=== PATIENT | female | born 1970 | race African-American/Black ===

== ENCOUNTER 2016-12-21 12:50 | Emergency (ER) | payer OTHER ==
[~2016-12-21] VITALS: Ht 162.6 cm; Wt 88.9 kg
[~2016-12-21 12:50] MED LIST: ANTI-ITCH28.4 GM TP; BACTRIM DS TAB1 EACH PO; BENADRYL25 MG PO; CLARITIN10 M2 PO; CLEOCIN HCL150 MG PO; FLAGYL500 MG PO; HYDROXYZINE HCL25 M2 PO; IBUPROFEN 600600 M1 PO; IRON; KEFLEX500 M1 PO; MEDROL DOSPAK21 TAB PO; NORCO 5-325 TA1 EACH PO; PREDNISONE 5 MG5 MG PO; PREDNISONE50 MG PO; ZPAK PO
[2016-12-21 13:49] LABS: URINE BILIRUBIN NEGATIVE (Negative); URINE BLOOD NEGATIVE (Negative); URINE COLOR YELLOW; URINE GLUCOSE-RANDOM* NEGATIVE (Negative); URINE KETONES NEGATIVE (Negative); URINE LEUKOCYTES-REFLEX 1+ (Negative); URINE PROTEIN (DIPSTICK) NEGATIVE (Negative); URINE SPECIFIC GRAVITY >= 1.030 (1.003-1.035); URINE UROBILINOGEN 0.2 E.U./dl (0.2-1.0)
[2016-12-21 13:58] LABS: SQUAMOUS 4-10 Moderate /LPF (0-3); URINE WBC-REFLEX 0-5 Rare /HPF (0-5)
[2016-12-21 13:59] LABS: CASTS None Seen /LPF (None Seen); CRYSTALS None Seen /LPF (None Seen); URINE RBC None Seen /HPF (0-2)
[2016-12-21] MEDS ORDERED: DOXYCYCLINE 10100 MG PO (15:07)
[2016-12-21] MEDS ORDERED: FLAGYL500 MG PO (15:07)
[2016-12-21 15:34] VITALS: BP 115/61
[2016-12-24 17:10] LABS: CHLAMYDIA TRACHOMATIS-PCR Negative (Negative); NEISSERIA GONORRHEA-PCR Negative (Negative)
== END 2016-12-21 15:36 | disposition home or self-care (01) ==
LOC: ER 12:50
PROVIDERS: Emergency Medicine
DX: N76.0 Acute vaginitis (principal); F10.99 Alcohol use, unspecified with unspecified alcohol-induced disorder; F17.210 Nicotine dependence, cigarettes, uncomplicated; F15.10 Other stimulant abuse, uncomplicated; Z90.710 Acquired absence of both cervix and uterus; Z98.890 Other specified postprocedural states

== ENCOUNTER 2017-04-18 02:33 | Inpatient (IN) | payer OTHER ==
[~2017-04-18] VITALS: Ht 162.6 cm; Wt 90.7 kg
--- NOTE | ~2017-04-18 | HC ---
[facility] [place] [address] CONSULTATION Name: ANGELINA GUILLEN Room #: 211-P [facility] IN M.R.#: [id number] Admission: 04/18/17 Attend Phys: Miguel Quesada MD Discharge: 04/19/17 Date of : 68 Report #: [id number] THIS REPORT FOR: //name// CC: JAY physician/PCP Miguel Quesada DATE OF SERVICE: 04/18/2017 HISTORY OF PRESENT ILLNESS: This is a 46-year-old female patient who was evaluated for an episode of TIA. The patient's records were reviewed and the patient was interviewed. She had an episode of right-sided symptoms associated with speech difficulty. Symptoms were severe when it came. They came spontaneously and resolved spontaneously. She never had this episode before and she has no prior history of migraine. REVIEW OF SYSTEMS: Indicates that she has no history of migraine. She does not believe she has diabetes or hypertension, but she does not go to the doctor on a regular basis. She did smoked marijuana on the night these symptoms occurred, prior to the symptoms happening. This marijuana was bought on the street, but she does not believe it was contaminated or spiked. She had a history of hysterectomy in the past and that was because of the fibroid. I carried out 14-point review of system, this is basically all the 14-point review of system she had. Rest of it was negative. PAST MEDICAL HISTORY: Negative for migraine or TIA. FAMILY HISTORY: Negative for any early age strokes. SOCIAL HISTORY: She told me that she does not smoke cigarettes, but smoke marijuana occasionally. She drinks socially. PHYSICAL EXAMINATION: Indicate she is alert, responsive. Her speech, concentration, fund of knowledge and memory is at her baseline. Cranial nerve examination 2-12 is unremarkable. She has symmetrical strength, sensation, reflexes and tones in all 4 extremities. There is no cerebellar sign. There is no papilledema. There is no meningeal sign. There is no thyroid mass or carotid bruit. Cardiac examination does not show any abnormality of the heart sounds or any other definite abnormality. Respiratory examinations indicate that there was no rhonchi and there was no respiratory difficulty. She has no edema, cyanosis or jaundice. Her pulses are palpable. Blood pressure is 114/72, respiration is 17, pulse is 65, temperature is 98.4. Her head CT was unremarkable and so was her carotid Doppler. Her LDL is high at 119. IMPRESSION: The patient presented with an episode of transient ischemic attack. At this age, the most common etiology for the transient ischemic attack will be hemiplegic migraine. There is a diagnosis of exclusion and other etiologies [address] [address] CONSULTATION Name: WILMERANGELINA JOSELIN Room #: [facility] IN M.R.#: [id number] Admission: 04/18/17 Attend Phys: Miguel Quesada MD Discharge: 04/19/17 Date of : 68 Report #: [id number] need to be excluded. I discussed with her and I suggested that we probably should do a CT angiogram to make sure there are no aneurysms or any other etiology. Those etiologies are less likely, but cannot be fully excluded. I discussed with her indication, potential complication, and alternative of CT angiogram and she wants to proceed with that. Her GFR is 130 and we will go ahead and do that. I will also get an EEG done and get some other blood workup done and await for echocardiogram. She should be on aspirin and her LDL should be managed further and if she wants to go on statin, she can be put on statin. All of it was discussed with the patient and she wants to follow this plan. Thank you very much for this referral and if you have any questions, please feel free to contact me. <ELECTRONICALLY SIGNED> By: Leo Snyder MD 04/22/17 1107 [id number] 2209 Leo Snyder MD /nt
--- NOTE | ~2017-04-18 | 2DMMODE ---
[facility] [address] [place] [address] 2 D/M-MODE ECHOCARDIOGRAM Name: WILMERANGELINA OLIVERA Room #: 211-P ADM IN M.R.#: [id number] Admission: 04/18/17 Attend Phys: Miguel Quesada, Discharge: Date of : 68 Date of Service: 04/18/17 1405 Report #: [id number] THIS REPORT FOR: //name// APPROVED REPORT Study performed: 04/18/2017 11:44:16 EXAM: Comprehensive 2D, Doppler, and color-flow Echocardiogram Patient Location: Echo lab Room #: 211 Status: routine BSA: 1.96 BP: 114/72 mmHg Other Information Study Quality: Good Indications Stroke vs TIA Echo Enhancing Agent Indication: Rule out Shunt Agent(s) / Amount(s) Used: Agitated Saline 6 cc 2D Dimensions RVDd: 33.92 mm LVEF(%): 66.48 (>50%) IVSd: 8.77 (7-11mm) LVOT Diam: 17.56 (18-24mm) LVDd: 35.09 mm PWd: 8.67 (7-11mm) Ascending Ao: 25.48 (22-36mm) LVDs: 22.51 (25-40mm) Aortic Root: 23.36 mm IVC: 11.00 mm Rubi's LVEF: 66.48 % Volumes Left Atrial Volume (Systole) Single Plane 4CH: 42.67 mL Single Plane 2CH: 30.97 mL LA ESV Index: 20.00 mL/m2 Aortic Valve AoV Peak Mark Anthony.: 1.73 m/s AO Peak Gr.: 11.92 mmHg LVOT Max P.98 mmHg LVOT Max V: 1.32 m/s CHELSEA Vmax: 1.85 cm2 [facility] [employer] [place] [address] 2 D/M-MODE ECHOCARDIOGRAM Name: ANGELINA GUILLEN Room #: 211-P [facility] IN M.R.#: [id number] Admission: 04/18/17 Attend Phys: Miguel Quesada, Discharge: Date of : 68 Date of Service: 04/18/17 1405 Report #: [id number] Mitral Valve E/A Ratio: 2.3 MV Decel. Time: 158.49 ms MV E Max Mark Anthony.: 1.02 m/s MV A Mark Anthony.: 0.45 m/s MV PHT: 45.96 ms IVRT: 76.12 ms Pulmonary Valve PV Peak Mark Anthony.: 1.02 m/s PV Peak Gr.: 4.19 mmHg Pulmonary Vein P Vein S: 0.60 m/s P Vein A: 0.24 m/s P Vein D: 0.54 m/s P Vein A Dur.: 83.0 msec P Vein S/D Ratio: 1.11 Tricuspid Valve TR Peak Mark Anthony.: 2.85 m/s RAP Estimate: 5.00 mmHg TR Peak Gr.: 32.45 mmHg PA Pressure: 38.00 mmHg Left Ventricle The left ventricle is normal size. There is normal left ventricular wall thickness. The left ventricular systolic function is normal. The left ventricular ejection fraction is within the normal range. LVEF is 60-65%. The left ventricular diastolic function is normal. Right Ventricle The right ventricle is normal size. The right ventricular systolic function is normal. Atria The left atrium size is normal. Color doppler noted possible PFO/ASD, however injection of bubbles documented no interatrial shunt. The right atrium size is normal. Aortic Valve The aortic valve is normal in structure. No aortic regurgitation is present. There is no aortic valvular stenosis. Mitral Valve The mitral valve is normal in structure. Trace mitral regurgitation. No evidence of mitral valve stenosis. Tricuspid Valve The tricuspid valve is normal in structure. Trace tricuspid [facility] [address] [place] [address] 2 D/M-MODE ECHOCARDIOGRAM Name: ANGELINA GUILLEN Room #: [address] [place] [address] IN M.R.#: [id number] Admission: 04/18/17 Attend Phys: Miguel Quesada, Discharge: Date of : 68 Date of Service: 04/18/17 1405 Report #: [id number] regurgitation. PAP is estimated at 38 mmHg. Pulmonic Valve The pulmonary valve is normal in structure. Trace pulmonic regurgitation. Great Vessels The aortic root is normal in size. IVC is normal in size and collapses >50% with inspiration. Pericardium There is no pericardial effusion. <Conclusion> The left ventricle is normal size. LVEF is 60-65%. The left atrium size is normal. The aortic valve is normal in structure. The mitral valve is normal in structure. Trace mitral regurgitation. The tricuspid valve is normal in structure. Trace tricuspid regurgitation. PAP is estimated at 38 mmHg. The pulmonary valve is normal in structure. Trace pulmonic regurgitation. There is no pericardial effusion. Color doppler noted possible PFO/ASD, however injection of bubbles documented no interatrial shunt. <ELECTRONICALLY SIGNED> By: Paco Mon MD 04/18/17 1405 1405 1405 Paco Mon MD /INF
--- NOTE | ~2017-04-18 | EKG ---
[address] [address] ELECTROCARDIOGRAM REPORT Name: ANGELINA GUILLEN Room #: [facility] IN M.R.#: [id number] Admission: 04/18/17 Attend Phys: Miguel Quesada MD Discharge: 04/19/17 Date of : 68 Report #: [id number] THIS REPORT FOR: //name// [facility] ED Test Date: 2017-04-18 Test Time: 02:50:19 Pat Name: ANGELINA GUILLEN Department: Room: [facility] Gender: F Banquet Chef: gg : 1970 Requested By: Estella Candelaria Order Number: [id number] MD: Jeffrey Marshall Measurements Intervals [place] Rate: 67 P: 28 NM: 135 QRS: 15 QRSD: 73 T: 12 QT: 364 QTc: 385 Interpretive Statements Sinus rhythm No previous ECG available for comparison Electronically Signed On 04-20-2017 12:09:52 BUN MACHINE OPERATOR by Jeffrey Marshall [email or web address] <ELECTRONICALLY SIGNED> By: Jeffrey Marshall MD 04/20/17 1209 0250 0250 Jeffrey Marshall MD /SOFI
--- NOTE | ~2017-04-18 | EEG ---
[facility] [address] [place] [employer] [place] [address] ELECTROENCEPHALOGRAM Name: ANGELINA GUILLEN Room #: 211-P [facility] IN M.R.#: [id number] Admission: 04/18/17 Attend Phys: Miguel Quesada MD Discharge: 04/19/17 Date of : 68 Report #: [id number] THIS REPORT FOR: //name// CC: [facility] physician/PCP Miguel Quesada DATE OF SERVICE: 04/18/2017 This patient is being evaluated for right-sided weakness. EEG was done by placing the electrodes by standard 10/20 system of electrode placement. Both referential and sequential montages were used for recording. Background activity in this patient's EEG is 11 Hz and 40-50 microvolt. This is a very well-formed background activity. This background activity is symmetrical. The patient goes to sleep that is associated with bilaterally symmetrical sleep spindle and vertex sharp waves. Some eye movement was noticed during that recording. Photic stimulation was unremarkable. Throughout the record, no active epileptiform activity was noticed. IMPRESSION: This patient's EEG does not demonstrate any clear-cut epileptiform activity. However, the patient's EEG does appear to be showing some abnormal eye movements when she goes to sleep. I will recommend overnight sleep study with seizure montages followed by daytime sleep study to make sure she does not have a REM onset sleep. Thank you very much for this referral. <ELECTRONICALLY SIGNED> By: Leo Snyder MD 04/22/17 1108 0804 0848 MD toya Palma
[~2017-04-18 02:33] MED LIST changes: +DOXYCYCLINE 10100 MG PO
[2017-04-18 02:54] VITALS: BP 134/72
[2017-04-18 03:12] LABS: ABSOLUTE NEUTROPHILS 6.1 thou/uL (1.4-8.2); BASOPHILS 0.4 % (0.0-2.0); EOSINOPHILS 0.7 % (0.0-3.0); HEMATOCRIT 42.6 % (37.0-47.0); HEMOGLOBIN 14.3 gm/dL (12.0-15.0); LYMPHOCYTES 21.3 % (24.0-44.0); MANUAL DIFF NO; MCH 29.9 pg (26.0-34.0); MCHC 33.6 g/dL (28.0-37.0); MCV 88.8 fL (80.0-100.0); MONOCYTES 6.2 % (1.0-8.0); PLATELET COUNT 193 thou/uL (150-400); POLYS 71.4 % (36.0-66.0); RDW 14.1 % (10.5-14.5); WBC 8.5 thou/uL (4.0-11.0)
[2017-04-18 03:21] LABS: CALCIUM 9.5 mg/dL (8.5-10.1); CREATININE 0.6 mg/dL (0.6-1.0); POTASSIUM 3.8 mmol/L (3.5-5.1)
[2017-04-18 03:25] LABS: APTT 31.2 Seconds (24.5-32.8); PROTIME 10.6 Seconds (9.3-11.4)
[2017-04-18 05:07] VITALS: BP 111/66
[2017-04-18 05:17] LABS: CHOLESTEROL 192 mg/dL (<200); HDL CHOLESTEROL 44 mg/dL (>40); LDL CHOLESTEROL 119 mg/dL (<100); TC:HDL 4.4 Ratio (Not establshd); TRIGLYCERIDE 145 mg/dL (<150); VLDL 29 mg/dL (<40)
[2017-04-18 05:22] LABS: SERUM ASSESSMENT Clear
[2017-04-18 05:37] VITALS: BP 123/60
[2017-04-18] MEDS ORDERED: NOHOMEMEDICATIONS PO (06:22)
[2017-04-18 08:14] VITALS: BP 114/72
[2017-04-18 13:45] LABS: TSH 2.277 uIU/mL (0.358-3.740)
[2017-04-18 15:03] VITALS: BP 117/63
[2017-04-18 19:45] VITALS: BP 115/77
[2017-04-19 01:08] LABS: GLYCOHEMOGLOBIN (HGB A1C) 5.3 % (4.8-5.6)
[2017-04-19 04:15] VITALS: BP 107/67
[2017-04-19 08:40] VITALS: BP 116/57
[2017-04-19] MEDS ORDERED: LIPITOR10 MG PO (11:39)
[2017-04-19] MEDS ORDERED: ASPIR 8181 MG PO (11:39)
[2017-04-19 13:54] VITALS: BP 116/57
== END 2017-04-19 15:22 | disposition home or self-care (01) | DRG 69 ==
LOC: ER 02:33 → 2N 04:23 → EROBS 04:23 → 2N 05:17
PROVIDERS: Emergency Medicine; Nurse Practitioner Acute Care; Psychiatry & Neurology Neuromuscular Medicine
DX: G45.9 Transient cerebral ischemic attack, unspecified (principal); G43.409 Hemiplegic migraine, not intractable, without status migrainosus; F12.90 Cannabis use, unspecified, uncomplicated; Z71.89 Other specified counseling; Z82.49 Family history of ischemic heart disease and other diseases of the circulatory system; Z83.3 Family history of diabetes mellitus; Z90.710 Acquired absence of both cervix and uterus; Z87.891 Personal history of nicotine dependence
CPT/HCPCS: 10081

== ENCOUNTER 2017-09-29 09:14 | Emergency (ER) | payer OTHER ==
[~2017-09-29] VITALS: Ht 162.6 cm; Wt 90.7 kg
[~2017-09-29 09:14] MED LIST changes: +ASPIR 8181 MG PO; +LIPITOR10 MG PO; +NOHOMEMEDICATIONS PO
[2017-09-29] MEDS ORDERED: NAPROSYN500 MG PO (09:29)
[2017-09-29] MEDS ORDERED: NORFLEX100 MG PO (09:29)
== END 2017-09-29 09:45 | disposition home or self-care (01) ==
LOC: ER 09:14
DX: S76.811A Strain of other specified muscles, fascia and tendons at thigh level, right thigh, initial encounter (principal); F17.210 Nicotine dependence, cigarettes, uncomplicated; X50.1XXA Overexertion from prolonged static or awkward postures, initial encounter; Y93.41 Activity, dancing; Y92.89 Other specified places as the place of occurrence of the external cause; Y99.8 Other external cause status

== ENCOUNTER 2019-07-26 16:51 | Emergency (ER) | payer OTHER ==
[~2019-07-26] VITALS: Ht 162.6 cm; Wt 90.7 kg
[~2019-07-26 16:51] MED LIST changes: +NAPROSYN500 MG PO; +NORFLEX100 MG PO
[2019-07-26 16:54] VITALS: BP 118/74
[2019-07-26] MEDS ORDERED: KEFLEX500 M1 PO (17:28)
== END 2019-07-26 17:39 | disposition home or self-care (01) ==
LOC: ER 16:51
DX: T78.49XA Other allergy, initial encounter (principal); L20.9 Atopic dermatitis, unspecified; F17.210 Nicotine dependence, cigarettes, uncomplicated; X58.XXXA Exposure to other specified factors, initial encounter

== ENCOUNTER 2020-03-03 21:08 | Emergency (ER) | payer OTHER ==
[~2020-03-03] VITALS: Ht 162.6 cm; Wt 90.7 kg
[2020-03-03 21:26] LABS: URINE BILIRUBIN NEGATIVE (Negative); URINE BLOOD NEGATIVE (Negative); URINE CLARITY CLEAR; URINE COLOR YELLOW; URINE GLUCOSE-RANDOM* NEGATIVE (Negative); URINE KETONES NEGATIVE (Negative); URINE LEUKOCYTES-REFLEX NEGATIVE (Negative); URINE NITRITE-REFLEX NEGATIVE (Negative); URINE PROTEIN (DIPSTICK) TRACE (Negative); URINE SPECIFIC GRAVITY >= 1.030 (1.005-1.035); URINE UROBILINOGEN 0.2 E.U./dl (0.2-1.0)
[2020-03-03 21:45] LABS: ABSOLUTE NEUTROPHILS 7.6 thou/uL (1.4-8.2); BASOPHILS 0.4 % (0.0-2.0); EOSINOPHILS 0.3 % (0.0-3.0); HEMATOCRIT 43.4 % (37.0-47.0); HEMOGLOBIN 14.5 gm/dL (12.0-15.0); LYMPHOCYTES 20.5 % (24.0-44.0); MCH 30.3 pg (26.0-34.0); MCHC 33.4 g/dL (28.0-37.0); MCV 90.8 fL (80.0-100.0); MONOCYTES 4.2 % (1.0-8.0); PLATELET COUNT 240 thou/uL (150-400); POLYS 74.6 % (36.0-66.0); RBC 4.78 mil/uL (4.20-5.00); RDW 13.9 % (10.5-14.5); WBC 10.2 thou/uL (4.0-11.0)
[2020-03-03 21:54] LABS: CALCIUM 9.6 mg/dL (8.5-10.1); CREATININE 0.9 mg/dL (0.6-1.0)
[2020-03-03 22:07] LABS: TOTAL BILIRUBIN 0.2 mg/dL (0.2-1.0); TOTAL PROTEIN 8.1 g/dL (6.4-8.2)
[2020-03-03 23:38] VITALS: BP 142/89
== END 2020-03-03 23:40 | disposition home or self-care (01) ==
LOC: ER 21:08
PROVIDERS: Emergency Medicine
DX: A59.01 Trichomonal vulvovaginitis (principal); F17.210 Nicotine dependence, cigarettes, uncomplicated; Z90.710 Acquired absence of both cervix and uterus

== ENCOUNTER 2020-03-29 16:28 | Emergency (ER) | payer OTHER ==
[~2020-03-29] VITALS: Ht 162.6 cm; Wt 88.5 kg
--- NOTE | 2020-03-29 17:10 | EKG ---
[facility] [address] ELECTROCARDIOGRAM REPORT Name: ANGELINA GUILLEN Room #: REG [facility]#: [id number] Admission: 03/29/20 Attend Phys: Discharge: Date of : 68 Report #: [id number] THIS REPORT FOR: cc: JAY - Valeria family physician/PCP JAY - Valeria family physician/PCP Christiano Mendez MD [facility] ~ THIS REPORT FOR: //name// [facility] ED Test Date: 2020-03-29 Test Time: 16:57:37 Pat Name: ANGELINA GUILLEN Department: Room: Gender: F Residential Manager: : 1970 Requested By: Fredrick Pinto Order Number: [id number] MD: Christiano Mendez Measurements Intervals [place] Rate: 68 P: 52 ID: [id number] QRS: 43 QRSD: 59 T: 28 QT: 362 QTc: 388 Interpretive Statements Sinus rhythm Probable left atrial enlargement Compared to ECG 04/18/2017 02:50:19 No significant changes Electronically Signed On 03-29-2020 17:10:12 IRONER HAND by Christiano Mendez [email or web address] <ELECTRONICALLY SIGNED> By: Christiano Mendez MD, FACC 03/29/20 1710 56 56 Christiano Mendez MD, [facility] /EPI
[2020-03-29] MEDS ORDERED: NORCO 5-325 TA1 EAC2 PO (18:18)
[2020-03-29] MEDS ORDERED: VOLTAREN GEL 1100 G2 TOP (18:18)
[2020-03-29 18:28] VITALS: BP 122/87
== END 2020-03-29 18:30 | disposition home or self-care (01) ==
LOC: ER 16:28
DX: M77.8 Other enthesopathies, not elsewhere classified (principal); M79.631 Pain in right forearm; R07.89 Other chest pain; M25.511 Pain in right shoulder; Z90.711 Acquired absence of uterus with remaining cervical stump; Z98.890 Other specified postprocedural states; F17.210 Nicotine dependence, cigarettes, uncomplicated